=== PATIENT | female | born 1985 | race Caucasian/White ===

== ENCOUNTER 2016-10-09 16:12 | Inpatient (IN) | payer OTHER ==
[~2016-10-09] VITALS: Ht 174 cm; Wt 126.1 kg
[~2016-10-09 16:12] MED LIST: Ibuprofen PO; PREN1TAB73 PO
[2016-10-09 17:00] LABS: Mean Corpuscular Hemoglobin 30.4 pg (27.0-35.0); Mean Corpuscular Volume 89.1 fL (81-100)
[2016-10-09] MEDS ORDERED: Lactated Ringer's 1,000 ML IV PRN (21:23)
[2016-10-09] MEDS ORDERED: Sodium Chloride LOK Flush 10 mL Syringe IVFLUSH PRN (21:25)
[2016-10-09] MEDS ORDERED: Hemorrhage Kit, Post Partum XX ONE (21:25)
[2016-10-09] MEDS ORDERED: Oxytocin 30 Units/500 mL LR 30 UNITS in IV Premix 1 EACH IV PRN (21:25)
[2016-10-10] MEDS: Lactated Ringer's 1,000 ML IV SCH ×3 (04:21→23:35)
[2016-10-10] MEDS: Clindamycin Inj 900 MG in IV Premix 1 EACH IV SCH ×2 (05:09→22:00)
[2016-10-10] MEDS ORDERED: Hemorrhage Kit, Post Partum XX ONE (13:25)
[2016-10-10] MEDS ORDERED: Oxytocin 30 Units/500 mL LR 30 UNITS in IV Premix 1 EACH IV PRN ×2 (13:25→18:20)
[2016-10-10] MEDS ORDERED: fentaNYL 2 mCg/mL-Bupivicaine 0.125% 100 mL Premix EPIDURAL ONE (13:43)
[2016-10-10] MEDS ORDERED: Lactated Ringer's 500 ML IV ONE (14:11)
[2016-10-10] MEDS ORDERED: Lactated Ringer's 1,000 ML IV SCH ×2 (14:11→18:19)
--- NOTE | 2016-10-10 14:11 | PCM.HPANE ---
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 Admitting Provider:Stanley De La O MD Attending Provider:Stanley De La O MD Primary Care Physician:Stanley De La O MD Other Provider:Kit Pan Anesthesia Reason for Visit NST NST Ht/WT & BMI Body Mass Index Allergies Coded Allergies: latex (Verified Allergy, Mild, 03/23/15) Penicillins (Verified Allergy, Unknown, 01/19/09) Past Anesthesia History Anesthesia History: Denies:: Abnormal Airway, Anesthesia Reactions, Difficult Intubation, Fam Anesthesia Reaction, Fam Malignant Hypertherm, Malignant Hyperthermia Diabetes History Hx Diabetes?: No Medications Hypertension Medication: No Home Meds Incl Beta Grzegorz: No Active Scripts [Ibuprofen] (Motrin)800 MG TABLET No Conflict [id number] Mg PO Q6H PRN For Pain # 30 TABLET Ref 1 Prov:Alfonzo Verdin MD 05/31/14 Reported Medications Vit/Iron Fumarate/FA ( Vitamin Tablet)1 Each Tablet1 Each PO DAILY 05/29/14 History History of ENT Problems?: No HEENT History: Denies:: Abnormal Airway Cataracts Difficult Intubation Dysphagia Glaucoma Hearing Problem Sinus Problem TMJ Denture Type: None Teeth Condition: Within Normal Limits Hx of Heart Problems?: No Cardiovascular History: Positive for:: Hypertension Denies:: AICD Abdominal Aortic Aneurism Atrial Fibrillation Cardiac Surgery Chest Pain Congestive Heart Failure Coronary Artery Disease Edema Heart Murmur Irregular Heartbeat Pacemaker Peripheral Vascular Rheumatic Fever Thrombophlebitis Valvular Heart Disease Hx of Respiratory Problem?: No Respiratory History: Denies:: Asthma COPD Chest Surgery Cough Dyspnea Emphysema Hemoptysis Oxygen Administration Pneumonia Pulmonary Embolism Tuberculosis Use of C-PAP Machine Use of Inhalers / NEBS Hx Neurologic Problems?: No Hx of GI Problems?: No Hx of Problems?: No Hx Musculoskeletal Problems?: No Hx of Psycho/Social Problems?: No Hx Surgeries?: No Hx Diabetes: No Hx Alcohol Use: NoHx Substance Use: No Smoking Status: Never Smoker Stop/Bang Risk Assessment Category Category 1A: Patient has history of documented sleep apnea, and HAS NOT received any narcotic, sedative or anesthesia administration during this stay. Category 1B: Patient has history of documented sleep apnea, and HAS received any narcotic , sedative or anesthesia administration during this stay Category 2: Patient has SUSPECTED Obstructive Sleep Apnea, and HAS received any narcotic , sedative or anesthesia administration during this stay. Category 3: Patient has SUSPECTED Obstructive Sleep Apnea and HAS NOT received narcotic, sedative or anesthesia administration during this stay. Category 4: Outpatient in Procedural Areas with known sleep apnea or who screen positive for High Risk via the STOP/BANG questionnaire. Exam Exam General Appearance: Alert, Oriented X3 HEENT/AIRWAY: MP 3, Neck Movement (FROM) Lungs: Clear to Auscultation, Clear to Percussion Heart: Exam Unremarkable, Regular Rate/Rhythm Meds/Labs/Diagnostics Admission Meds Current Medications Lactated Ringer's (Lr) 1,000 ml @ 125 mls/hr Q8H IV Last administered on 04:21; Start 10/09/16 at 19:17 Dinoprostone 10 mg 10 mg ONCE ONCE VAGINAL Last administered on 10/09/16 22: 44; Start 10/09/16 at 19:20; Stop 10/09/16 at 19:35; Status DC Clindamycin Phosphate/ Dextrose/Premix (Cleocin Inj/IV Premix) 50 ml @ 100 mls/ hr Q8 IV Last administered on 10/10/16 05:09; Start 10/10/16 at 00:30 Labs Test 10/09/16 16:26 10/09/16 16:28 10/09/16 16:52 Urine Random Creatinine 114mg/dL (16-392) Urine Random Total Protein 10mg/dL (0-15) Urine Protein/Creatinine Ratio 0.09 (0-200) Hold Urine Received (Received) White Blood Count 12.6th/mm3 (3.8-10.1) Red Blood Count 4.21mil/mm3 (3.90-5.20) Hemoglobin 12.8g/dL (12.0-15.6) Hematocrit 37.5% (35.0-46.0) Mean Corpuscular Volume 89.1fL (81-100) Mean Corpuscular Hemoglobin 30.4pg (27.0-35.0) Mean Corpuscular Hemoglobin Concent 34.1% (32.0-37.0) Red Cell Distribution Width 13.5% (12.3-15.4) Platelet Count 270bil/L (150-400) Hematology Comments Blood Urea Nitrogen 9mg/dL (6-20) Creatinine 0.92mg/dL (0.57-1.00) Uric Acid 7.1mg/dL (2.6-7.2) Aspartate Amino Transf (AST/SGOT) 22U/L (0-50) Alanine Aminotransferase (ALT/SGPT) 15U/L (0-32) Plan Impression Patient chart reviewed, patient interviewed and anesthestic plan with risks, benefits, and alternatives discussed, and informed consent obtained. ASA Physical Status: ASA3 Severe Disease (BMI greater than 40) Anesthetic Plan: Epidural Bene/Risks/Altern/Consents: Yes HP Complete Prior to Induction: Yes Paulo Ty MD Oct 10, 2016 14:10
[2016-10-10] MEDS ORDERED: fentaNYL 2 mCg/mL-Bupiv 0.125% 100 ML EPIDURAL SCH (14:15)
[2016-10-10] MEDS ORDERED: Ondansetron 2 mg/mL 2 mL Inj IVPUSH PRN (14:15)
[2016-10-10] MEDS ORDERED: EPHEDrine Sulfate 50 mg/mL Inj IVPUSH PRN (14:15)
[2016-10-10] MEDS ORDERED: Atropine 1 mg/10 mL (Code) Syringe IVPUSH PRN (14:15)
[2016-10-10] MEDS ORDERED: Sodium Chloride LOK Flush 10 mL Syringe IVFLUSH SCH (16:30)
--- NOTE | 2016-10-10 18:28 | PCM.PNOBIP ---
Subjective Date of Service Oct 10, 2016 Delivery plan: Spontaneous Vaginal Delivery Visit History 31 year-old , admitted at 38 4/7 weeks EGA for labor induction for gestational hypertension. Subjective Currently feeling well. Rubi regularly after cervical ripening with Cervidil. Pain Management: Epidural Gastrointestinal: No N/V Labs Laboratory Tests 10/09/16 16:52: White Blood Count 12.6, Red Blood Count 4.21, Hemoglobin 12.8, Hematocrit 37.5, Mean Corpuscular Volume 89.1, Mean Corpuscular Hemoglobin 30.4, Mean Corpuscular Hemoglobin Concent 34.1, Red Cell Distribution Width 13.5, Platelet Count 270, Hematology Comments Exam Vital Signs Vital Signs Contraction frequency in minutes: MVUs: Vital Signs: VS reviewed, concerns are (intermittent low elevation of systolic and diastolic blood pressures, not requiring pharmacologic intervention) Heart Tracings Heart Tones Baseline 150 bpm Heart Rate Variability: Moderate Heart Rate Accelleration: Present Heart Rate Deceleration: Other (occasional mild variable) Tocometry/IUPC Contraction frequency in minutes: q 2-5 Sterile Vaginal Exam Cervical Dilation: 4 cms Cervical Effacement: 50 % Station: -3 (soft and posterior) Exam General: Alert, Oriented X3, No Acute Distress OB Intrapartum Assessment/Plan Assessment Seemingly in early active phase labor. Difficult cervical exam. Intrapartum plan: Start pitocin Intrapartum Pain Management: Epidural Pain Evaluation: Adequate Pain Control Intrapartum Antibiotics: Clindamycin Stanley De La O MD Oct 10, 2016 18:28
--- NOTE | 2016-10-11 04:33 | PCM.PNOBIP ---
Subjective Date of Service Oct 11, 2016 Delivery plan: Spontaneous Vaginal Delivery Visit History Interval progress on 31yo at 38 6/7 weeks EGA, admitted for labor induction for gestational diabetes. Subjective Patient generally feeling well. Noting increased right-sided pressure with contractions. Pain Management: Epidural Gastrointestinal: No N/V Labs Laboratory Tests 10/09/16 16:52: White Blood Count 12.6, Red Blood Count 4.21, Hemoglobin 12.8, Hematocrit 37.5, Mean Corpuscular Volume 89.1, Mean Corpuscular Hemoglobin 30.4, Mean Corpuscular Hemoglobin Concent 34.1, Red Cell Distribution Width 13.5, Platelet Count 270, Hematology Comments Exam Vital Signs Vital Signs Contraction frequency in minutes: MVUs: Vital Signs: VS reviewed, concerns are (intermittent SBPs in the 140s-150s, DBPs in the 80s to 90s) Heart Tracings Heart Tones Baseline 130 bpm Heart Rate Variability: Moderate Heart Rate Accelleration: Present Heart Rate Deceleration: Absent Tocometry/IUPC Contraction frequency in minutes: q 2-3 Sterile Vaginal Exam Cervical Dilation: 7 cms Cervical Effacement: 80 % Station: -2 Exam General: Alert, Oriented X3, No Acute Distress OB Intrapartum Assessment/Plan Assessment Active phase labor, progressing Problems: (1) with 38 completed weeks gestation Status: Acute ICD Code: Z3A.38 (2) Gestational hypertension Onset Date: 05/30/2014 Status: Acute ICD Code: O13.9 Intrapartum plan: AROM (clear fluid noted) Intrapartum Pain Management: Epidural, Other (continue Pitocin) Pain Evaluation: Adequate Pain Control Intrapartum Antibiotics: Clindamycin Stanley De La O MD Oct 11, 2016 04:33
[2016-10-11] MEDS ORDERED: Lactated Ringer's 1,000 ML IV SCH (05:29)
[2016-10-11] MEDS ORDERED: LANOlin HPA 7 Gm Ointment TOPICAL PRN (05:30)
[2016-10-11] MEDS ORDERED: Witch Hazel-Glycerin Pads TOPICAL PRN (05:30)
[2016-10-11] MEDS ORDERED: Oxytocin 10 Unit/mL Inj IM PRN (05:30)
[2016-10-11] MEDS ORDERED: Benzocaine (Dermoplast) 20% 60 Gm Spray TOPICAL PRN (05:30)
[2016-10-11] MEDS ORDERED: Oxytocin 30 Units/500 mL LR 30 UNITS in IV Premix 1 EACH IV PRN (05:30)
[2016-10-11] MEDS ORDERED: Methylergonovine 0.2 mg/mL Inj IM PRN (05:30)
[2016-10-11] MEDS ORDERED: Carboprost 250 mCg/mL Inj IM PRN (05:30)
[2016-10-11] MEDS ORDERED: Hemorrhage Kit, Post Partum XX ONE (05:30)
--- NOTE | 2016-10-11 05:45 | PCM.OBVAG ---
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
[2016-10-12 09:23] LABS: Mean Corpuscular Hemoglobin 30.5 pg (27.0-35.0); Mean Corpuscular Volume 90.3 fL (81-100)
--- NOTE | 2016-10-12 09:25 | PCM.DC.OB ---
Obstetrical Discharge Summary Date of Service Oct 12, 2016 Date of hospital admission Oct 09, 2016 at 18:51 Date of Discharge: Oct 12, 2016 Providers Admitting Physician: Stanley De La O MD Primary Care Physician: Stanley De La O MD Attending Physician: Stanley De La O MD Problems: (1) with 38 completed weeks gestation Status: Acute ICD Code: Z3A.38 (2) Gestational hypertension Comment: Continued intermittently elevated blood pressures. She will monitor BPs at home. We will reassess in the office tomorrow. Last Edited By: Stanley De La O MD on Oct 12, 2016 09:19 Onset Date: 05/30/2014 Status: Acute ICD Code: O13.9 Brief History and Physical: 31yo , admitted at 38 4/7 weeks EGA for elective induction for gestational hypertension. Hospital Course: Cervidil placed for cervical ripening. Patient subsequently maintained a regular contraction pattern. She required oxytocin augmentation when she failed to make significant cervical change. Labor continued to progress well. She received epidural analgesia, with good pain relief. She delivered a vigorous male over an intact perineum. She did well through her course. She did continue to have intermittently elevated blood pressures but did not require pharmacotherapy for this. ([Ibuprofen]) 800 MG TABLET 800 MG PO Q6H PRN PRN For Pain Prescribed by: MARLON DE GUZMAN MD Vit/Iron Fumarate/FA ( Vitamin Tablet) 1 Each Tablet 1 EACH PO DAILY (Reported) Disposition Home Follow-up plan 6 weeks Discharge Diet: No restrictions Discharge Activity-General: Pelvic Rest for 6 weeks Stanley De La O MD Oct 12, 2016 09:24
--- NOTE | 2016-10-12 09:27 | PCM.DIOB ---
Obstetrical Disch Instruction Date of Service: Oct 12, 2016 Dates of Hospitalization Date of Hospital Admission Oct 09, 2016 at 18:51 Providers Admitting Physician: Stanley De La O MD Primary Care Physician: Stanley De La O MD Attending Physician: Stanley De La O MD Discharge Diagnosis Problems: (1) with 38 completed weeks gestation Status: Resolved ICD Code: Z3A.38 (2) Gestational hypertension Permanent Comment: Continued intermittently elevated blood pressures. She will monitor BPs at home. We will reassess in the office tomorrow. Last Edited By: Stanley De La O MD on Oct 12, 2016 09:19 Onset Date: 05/30/2014 Status: Acute ICD Code: O13.9 Diet Discharge Diet: No restrictions Activity Discharge Activity-General: Pelvic Rest for 6 weeks Dressing and Incisional Care Hygiene: May shower Follow Up Plan Follow-up Provider (F9): Stanley De La O MD Follow-up appointment: Weeks (6) Call your provider for: Fever or Chills, Shortness of breath, Heavy vaginal bleeding, Heavy bleeding, Vaginal discomfort, Red painful breasts, Other (blood pressures consistently greater than 140/90) Stanley De La O MD Oct 12, 2016 09:27
--- NOTE | 2016-10-12 09:33 | PCM.PNOBPP ---
Subjective Date of Service Oct 12, 2016 Post : Spontaneous Vaginal Delivery Visit History PPD#1 -- status post uncomplicated . Subjective Patient feeling well. Lochia: Light Pain Management: No or Minimal Pain Gastrointestinal: Good Appetite, No N/V Postop Activity: Ambulating Independently Labs Laboratory Tests 10/12/16 06:35: Hct 35.2 Exam Vital Signs Vital Signs: VS reviewed, concerns are (intermittent blood pressure elevation) Exam Abdomen: Uterus is (U-1), Fundus firm, Abdomen soft, Abdomen non-tender, Abdomen non-distended Perineum: Intact : Voiding without difficulty Extremities: No cords, No tenderness/swelling Lungs: Clear to Auscultation, Normal Air Movement Heart: Normal S1, Normal S2, No Murmurs/Rubs/Gallops General: Alert, Oriented X3, Cooperative, No Acute Distress OB Post Assessment/Plan Problems: (1) with 38 completed weeks gestation Status: Resolved ICD Code: Z3A.38 (2) Gestational hypertension Permanent Comment: Continued intermittently elevated blood pressures. She will monitor BPs at home. We will reassess in the office tomorrow. Last Edited By: Stanley De La O MD on Oct 12, 2016 09:19 Onset Date: 05/30/2014 Status: Acute ICD Code: O13.9 Pain Evaluation: Adequate Pain Control Post plan: Anticipate discharge home today Stanley De La O MD Oct 12, 2016 09:19
[2016-10-12 10:03] VITALS: BP 139/93; PULSE 83; RESP 16
== END 2016-10-12 10:57 | disposition home or self-care (01) | DRG 775 ==
LOC: FBCO 16:12 → FBC 18:51
PROVIDERS: ADMIT Family Medicine; ATTEND Family Medicine
PROC: 3E0P7GC Introduction of Other Therapeutic Substance into Female Reproductive, Via Natural or Artificial Opening (ICD-10-PCS; 2016-10-10)
PROC: 10E0XZZ Delivery of Products of Conception, External Approach (ICD-10-PCS; principal; 2016-10-11)
PROC: 10907ZC Drainage of Amniotic Fluid, Therapeutic from Products of Conception, Via Natural or Artificial Opening (ICD-10-PCS; 2016-10-11)
DX: O13.4 Gestational [pregnancy-induced] hypertension without significant proteinuria, complicating childbirth (principal); Z37.0 Single live birth; Z3A.38 38 weeks gestation of pregnancy